=== PATIENT | male | born 2000 | race Caucasian/White ===

== ENCOUNTER 2021-10-01 07:57 | Outpatient (CLI) | payer OTHER, SELFPAY ==
--- NOTE | ~2021-10-01 | MR_ITS ---
EXAMINATION: MR brain IAC wo/w con DATE: 10/01/2021 09:17 INDICATION: Tinnitus. Dizziness. TECHNIQUE: Magnetic resonance imaging (MRI) of the brain, brainstem, and internal auditory canals was performed without and with 20 mL MultiHance intravenous contrast. COMPARISON: None. FINDINGS: There is no intracranial hemorrhage, acute infarction, or abnormal intracranial mass lesion . The ventricles are normal in size. The internal auditory canals and inner and middle ears are rafael l. The mastoid air cells are normal. There is mild mucosal thickening in the paranasal sinuses. The o rbits are normal. IMPRESSION: 1. Normal brain. Reviewed, dictated and finalized at location B. IMPRESSION: 1. Normal brain.
[2021-10-01 09:00] LABS: Estimated Glomerular Filt Rate > 60
== END 2021-10-01 07:58 | disposition home or self-care (01) ==
PROVIDERS: Visit Provider Otolaryngology
DX: H93.13 Tinnitus, bilateral (principal)
CPT/HCPCS: 70553; A9577

== ENCOUNTER 2022-09-12 11:02 | Emergency (ER) | payer OTHER, SELFPAY ==
--- NOTE | 2022-09-12 11:05 | ED.MALEGU ---
HPI - Male Genitourinary General Chief complaint: Urogenital-Male Stated complaint: tesitcle pain Time Seen by Provider: 09/12/22 11:05 Source: patient Mode of arrival: ambulatory Limitations: no limitations History of Present Illness HPI Narrative: Weston is a 22-year-old male patient presenting to clinic today with complaints of right-sided testicle pain that began after he woke up this morning. He reports the pain is a sharp pinching pain and rates it as 7/10 currently. States he does have a history of epididymitis in the past. Has not been sexually active for the past year. Denies any penile discharge. Denies any urinary symptoms or abdominal pain. Denies any fever or chills. Related Data Home Medications Medication Instructions Recorded Confirmed No Home Medications 09/12/22 09/12/22 Allergies Allergy/AdvReac Type Severity Reaction Status Date / Time No Known Allergies Allergy Verified 09/12/22 11:20 Review of Systems Review of Systems: Pertinent positives per HPI. Patient denies any fever, chills, rash, headache, visual changes, dizziness, cough, runny nose, sore throat, shortness of breath, chest pain, palpitations, nausea, vomiting, diarrhea, constipation, abdominal pain, or any urinary issues. PMFSH Comments At the time of my signature, I reviewed and agree with the nursing past medical, surgical, social, and family history. There is no relevant family history pertinent to the patient complaint. Exam Narrative: General: Well-developed, well nourished, in no apparent distress. Head: Normocephalic, atraumatic. Cardio: Regular rate and rhythm, s1 and s2 normal, no murmur appreciated. Resp: Clear to auscultation bilaterally, no rhonchi, rales, wheezing or rubs. Abdomen: Soft, pliable, bowel sounds present in all quadrants, non-tender to palpation, no organomegly, no CVAT tenderness. : Circumcised male without corneal adhesions. Urethra midline without penile discharge. No lesions or masses noted to shaft of penis or scrotum. Bilateral testes descended with tenderness to palpation over the lower pole of the right testicle. Positive left cremasteric reflex, decreased right cremasteric reflex, no inguinal or femoral hernia Course Course Emergency Course: Portions of this record may have been created with voice recognition software. Level of Care: Express Care Visit Vital Signs Vital signs: Vital Signs Temperature 36.1 C L 09/12/22 11:11 Pulse Rate 76 09/12/22 11:11 Respiratory Rate 16 09/12/22 11:11 Blood Pressure 147/81 H 09/12/22 11:11 Pulse Oximetry 100 09/12/22 11:11 Temperature 36.1 C L 09/12/22 11:11 Pulse Rate 76 09/12/22 11:11 Respiratory Rate 16 09/12/22 11:11 Blood Pressure 147/81 H 09/12/22 11:11 Pulse Oximetry 100 09/12/22 11:11 Vital signs reviewed Transfer Transfered to: [place] [facility] Transportation: Other (Private car) Transfer rationale: Right testicle pain rule out testicular torsion Accepting physician: Dr. Noriega Transfer comments: Via private car MDM - Male Genitourinary MDM Narrative Medical decision making narrative: At the time of visit patient is resting comfortably on exam table. Currently rates his pain as 7/10. As decrease cremasteric reflex on the right with tenderness to palpation of the lower pole of the right testicle. Recommend transfer to the ED for further evaluation of testicular torsion. Patient agrees to transfer. Contacted Dr. Noriega at [facility] and he accepts patient for transfer. Report was given for continuity of care. Patient transferred to [facility] ED via private car Differential Diagnosis Differential diagnosis: Likely urinary tract infection, epididymitis, inguinal hernia (STD) and other (Testicular torsion) Discharge Plan Discharge Clinical Impression: Right testicular pain Patient Disposition: Acute Care Hospital Condition: Stable Prescriptions: No Action No Home Medications
[2022-09-12 11:11] VITALS: BP 147/81; PULSE 76; RESP 16; TEMP 36.1; O2SAT 100
== END 2022-09-12 11:23 | disposition home or self-care (01) ==
PROVIDERS: Emergency Provider Nurse Practitioner Family
DX: N50.811 Right testicular pain (principal)
CPT/HCPCS: 99212; G0463

== ENCOUNTER 2022-09-12 11:52 | Emergency (ER) | payer OTHER, SELFPAY ==
--- NOTE | ~2022-09-12 | US_ITS ---
EXAMINATION: US scrotum doppler DATE: 09/12/2022 12:35 INDICATION: Right testicular pain and swelling. TECHNIQUE: Grayscale and Doppler ultrasound images of the testes were obtained. COMPARISON: None. FINDINGS: The right testis measures 3.5 x 4.4 x 2.0 cm. The left testis measures 3.4 x 4.4 x 2.3 cm. There is normal vascular flow to both testes. The right epididymis is normal with normal vascular naga w. The left epididymis is normal with normal vascular flow. There is no varicocele or hydrocele. IMPRESSION: 1. Normal testes. Reviewed, dictated and finalized at location A. IMPRESSION: 1. Normal testes.
[2022-09-12 11:59] VITALS: BP 140/79; PULSE 77; RESP 18; TEMP 37; O2SAT 99
[2022-09-12 14:25] LABS: Appearance Urine Clear (Clear); Bacteria Urine None Seen /hpf; Bilirubin Urine Negative (Negative); Blood Urine Trace (Negative); Color Urine Yellow (Yellow); Glucose Urine UA Negative (Negative); Ketones Urine Negative (Negative); Leukocyte Esterase Ur Negative LEU/UL (Negative); Nitrate Urine Negative (Negative); Non Pathogenic Casts 0-2; Protein Urine Negative (Negative); RBC Urine 0-2 /hpf (0-2); Specific Grav Ur 1.009 (1.001-1.035); Squamous Epithelial Cell Urine None seen /hpf (Few); Urobilinogen Urine 0.2 mg/dL (<2.0); WBC Urine 0-5 /hpf
[2022-09-12 14:51] LABS: Add Urine Microscopic? YES
--- NOTE | 2022-09-12 15:16 | ED.MALEGU ---
HPI - Male Genitourinary General Chief complaint: Urogenital-Male Stated complaint: R testicular pain since this morning - sent fr [facility] Time Seen by Provider: 09/12/22 15:00 Source: patient Mode of arrival: ambulatory Limitations: no limitations History of Present Illness HPI Narrative: 22-year-old otherwise healthy here with complaints of right testicular pain which started this morning. Patient states that pain got intense while he was at work. He denies any trauma. No history of fever or chills. Denies any urethral discharge. MD Complaint: testicle pain Onset (ago): day(s) (1) Duration: constant Location: right testicle Severity: moderate Quality: aching Relieving factors: none Exacerbating factors: none Associated symptoms: Reports denies other symptoms Related Data Allergies Allergy/AdvReac Type Severity Reaction Status Date / Time No Known Allergies Allergy Verified 09/12/22 11:53 Review of Systems Review of Systems: All systems reviewed & are unremarkable except as noted in HPI and below Constitutional: Constitutional: Reports no additional constitutional complaints Eyes: Eyes: Reports no additional eye complaints ENT: Reports system reviewed and no additional complaints, except as documented Cardiovascular: Cardiovascular: Reports no additional cardiovascular complaints Respiratory: Respiratory: Reports no additional respiratory complaints Gastrointestinal: Gastrointestinal: Reports as per HPI Musculoskeletal: Musculoskeletal: Reports no additional musculoskeletal complaints Integumentary/Breasts: Skin/Breast: Reports system reviewed and no additional complaints, except as docu Neurologic: Reports system reviewed and no additional complaints, except as documented Psychiatric: Psychiatric: Reports no additional psychiatric complaints Endocrine: Endocrine: Reports no additional endocrine complaints Exam Narrative: GENERAL: Well-appearing, well-nourished, and in no acute distress. HEAD: Normocephalic, atraumatic. EYES: PERRLA and EOMI NECK: Supple. CHEST: Clear to auscultation. No respiratory distress. HEART: Regular rate and rhythm. No murmur heard. Normal peripheral pulses. ABDOMEN: Soft, nontender, nondistended, normal active bowel sounds. both testis descended , right testicle is normal has marked tenderness along the spermatic cord. EXTREMITIES: Normal range of motion. No edema. SKIN: Warm, dry, no rash. NEURO: No focal deficits. Alert and oriented x3. PSYCH: Normal mood and affect. Course Vital Signs Vital signs: Vital Signs Temperature 37.0 C 09/12/22 11:59 Pulse Rate 77 09/12/22 11:59 Respiratory Rate 18 09/12/22 11:59 Blood Pressure 140/79 09/12/22 11:59 Pulse Oximetry 99 09/12/22 11:59 Oxygen Delivery Room Air 09/12/22 11:59 Temperature 37.0 C 09/12/22 11:59 Pulse Rate 77 09/12/22 11:59 Respiratory Rate 18 09/12/22 11:59 Blood Pressure 140/79 09/12/22 11:59 Pulse Oximetry 99 09/12/22 11:59 Oxygen Delivery Room Air 09/12/22 11:59 MDM - Male Genitourinary Lab Data Labs: Lab Results 09/12/22 Range/Units 14:10 Urine Color Yellow (Yellow) Urine Appearance Clear (Clear) Urine pH 7.0 (5.0-9.0) Ur Specific [place] 1.009 (1.001-1.035) Urine Protein Negative (Negative) mg/dL Urine Glucose (UA) Negative (Negative) mg/dL Urine Ketones Negative (Negative) mg/dL Ur Blood (Man) Trace (Negative) Urine Nitrate Negative (Negative) Urine Bilirubin Negative (Negative) Urine Urobilinogen 0.2 (<2.0) mg/dL Leukocyte Esterase Rfl Negative (Negative) JASON/UL Urine RBC 0-2 (0-2) /hpf Urine WBC 0-5 /hpf Ur Squamous Epith Cells None seen (Few) /hpf Urine Bacteria None seen /hpf Urine Casts 0-2 Imaging Data Radiologist's impression: ITS Impressions Scrotum Ultrasound 09/12/22 12:37 IMPRESSION: 1. Normal testes. Discharge Plan [facility]charge Clin[facility]
[2022-09-12 16:01] VITALS: BP 135/76; PULSE 72; RESP 18; O2SAT 99
== END 2022-09-12 16:02 | disposition home or self-care (01) ==
PROVIDERS: Emergency Medicine; Emergency Provider Family Medicine
DX: N45.1 Epididymitis (principal)
CPT/HCPCS: 76870; 81001; 93976; 99283

== ENCOUNTER 2024-01-04 07:46 | Outpatient (CLI) | payer OTHER, SELFPAY ==
--- NOTE | ~2024-01-04 | US_ITS ---
US abdomen limited INDICATION: Elevated liver function tests PROCEDURE: Realtime right upper abdominal ultrasound. COMPARISON: No prior studies for comparison. FINDINGS: The pancreas is normal without focal mass or pancreatic ductal dilation. Liver echotexture is normal without focal mass or intrahepatic biliary dilatation. There is normal directional flow i n the portal vein. The gallbladder is normal without stones, gallbladder wall thickening or pericholecystic fluid. Comm on bile duct measures 3 mm. No sonographic Wiggins's sign. IMPRESSION: 1: Normal limited abdominal ultrasound. Reviewed, dictated and finalized at location B.
== END 2024-01-04 07:47 | disposition home or self-care (01) ==
DX: R79.89 Other specified abnormal findings of blood chemistry (principal)
CPT/HCPCS: 76705